=== PATIENT | male | born 1965 | race African-American/Black ===

== ENCOUNTER 2024-09-06 09:20 | Emergency (ER) | payer MEDICAID ==
[~2024-09-06] VITALS: Ht 172.7 cm; Wt 83.0 kg
[2024-09-06 09:24] VITALS: O2SAT 99
[2024-09-06 10:06] LABS: BASOPHILS % 0.4 % (0.0-2.0); DIFFERENTIAL COMMENT 0; EOSINOPHILS % 1.3 % (0.0-5.0); HEMATOCRIT. 47.7 % (42.0-52.0); HEMOGLOBIN. 15.9 g/dL (14.0-18.0); MEAN CORPUSCULAR HEMOGLOBIN 34.3 pg (28.0-32.0); MEAN CORPUSCULAR HGB CONC 33.4 g/dL (31.0-37.0); MEAN CORPUSCULAR VOLUME 102.9 fL (80.0-94.0); MEAN PLATELET VOLUME 7.8 fl (7.4-10.4); MONOCYTES % 3.7 % (2.0-8.0); NEUTROPHILS % 83.6 % (40.0-76.0); PLATELET 536 x1000/uL (130-400); RED BLOOD CELL COUNT 4.64 mill/uL (4.7-6.1); RED CELL DISTRIBUTION WIDTH 14.8 % (11.6-14.6); WHITE BLOOD COUNT 10.3 x1000/uL (4.5-11.0)
[2024-09-06 10:12] LABS: CHLORIDE 104 mEq/L (98-107); SODIUM 139 mEq/L (136-145)
[2024-09-06 10:13] LABS: CARBON DIOXIDE 23 mEq/L (21-32)
[2024-09-06 10:14] LABS: CALCIUM 9.4 mg/dL (8.7-10.4)
[2024-09-06 10:18] LABS: CREATININE 1.2 mg/dL (0.6-1.3); GLUCOSE 86 mg/dL (70-105)
[2024-09-06 10:19] LABS: UREA NITROGEN BLOOD 14 mg/dL (9-23)
[2024-09-06 10:54] LABS: ETHANOL BLOOD < 10 mg/dL (<10)
[2024-09-06] MEDS: LEVETIRACETAM 1000MG PREMIX 100 ML IV ONE (11:26)
[2024-09-06 12:30] VITALS: BP 142/93; PULSE 87; RESP 17; TEMP 36.7; O2SAT 98
[2024-09-06 13:25] LABS: CLARITY URINE CLEAR (CLEAR); COLOR URINE YELLOW (YELLOW); GLUCOSE URINE NEGATIVE (NEGATIVE); KETONES URINE TRACE (NEGATIVE); LEUKOCYTE ESTERASE URINE NEGATIVE (NEGATIVE); NITRITE URINE NEGATIVE (NEGATIVE); OCCULT BLOOD URINE TRACE (NEGATIVE); PH URINE 5.5 (4.5-8.0); PROTEIN URINE 2+ (NEGATIVE); SPECIFIC GRAVITY URINE 1.017 (1.005-1.030)
[2024-09-06 13:33] LABS: *AMPHETAMINES SCREEN URINE NEGATIVE (NEGATIVE); *BARBITURATES SCREEN URINE NEGATIVE (NEGATIVE); *BENZODIAZEPINES SCREEN URINE NEGATIVE (NEGATIVE); *COCAINE SCREEN URINE NEGATIVE (NEGATIVE); METHADONE URINE SCREEN NEGATIVE (NEGATIVE)
[2024-09-06 13:34] LABS: CANNABINOID URINE SCREEN PRESUMPTIVE POSITIVE (NEGATIVE); ECSTASY MDMA SCREEN URINE NEGATIVE (NEGATIVE); OPIATES URINE SCREEN NEGATIVE (NEGATIVE); PHENCYCLIDINE URINE SCREEN NEGATIVE (NEGATIVE)
[2024-09-06 13:45] LABS: BACTERIA URINE FEW; RBC URINE 0-2 /hpf (0-2); SQUAMOUS EPITHELIAL CELL URINE 1+ /lpf (RARE/1+); YEAST URINE NONE SEEN
== END 2024-09-06 12:35 | disposition home or self-care (01) ==
LOC: ER 09:20
DX: R56.9 Unspecified convulsions (principal); E78.00 Pure hypercholesterolemia, unspecified; I10 Essential (primary) hypertension; Z86.73 Personal history of transient ischemic attack (TIA), and cerebral infarction without residual deficits; Z79.899 Other long term (current) drug therapy
CPT/HCPCS: 80305; 80048; 81003; 80320; 85025; 36415; 96365; 99284; J1953; Z7610; A4606; G0480